=== PATIENT | female | born 1930 | race Caucasian/White ===

== ENCOUNTER 2017-05-22 08:14 | Emergency (ER) | payer MEDICARE, BC ==
[2015-04-22 16:03] VITALS: BMI 18.9
[~2017-05-22 08:14] MED LIST: BACLOFEN10 MG PO; BAYER CHEWABLE81 MG PO; CALTRATE 600 M600 M1 PO; DIOVAN HCT 160/1 TA1 PO; PLAVIX75 MG PO; PRILOSEC20 MG PO; ULTRAM50 MG PO; ZOCOR40 MG PO
[2017-05-22 09:11] LABS: BASOPHILS 0.1 % (0-2); EOSINOPHILS 0.3 % (0-7); HEMATOCRIT 43.8 % (36.0-48.0); HEMOGLOBIN 14.7 g/dL (12-16); IMMATURE GRANULOCYTES 0.5 % (0-5); LYMPHOCYTES 17.2 % (15-50); MCH 31.9 pg (26.0-34.0); MCHC 33.6 g/dL (31.0-37.0); MEAN PLATELET VOLUME 9.2 fL (7.4-10.4); MONOCYTES 10.6 % (2-11); NEUTROPHILS 71.3 % (40-80); PLATELET COUNT 248 10x3/uL (130-400); RBC 4.61 10x6/uL (4.00-5.40); RDW 14.5 % (11.5-14.5); WBC 7.9 10x3/uL (4.8-10.8)
[2017-05-22 09:17] LABS: APPEARANCE HAZY (CLEAR); BILIRUBIN NEGATIVE (NEGATIVE); COLOR YELLOW (YELLOW); GLUCOSE NEGATIVE (NEGATIVE); KETONE NEGATIVE (NEGATIVE); NITRITE NEGATIVE (NEGATIVE); PROTEIN NEGATIVE (NEGATIVE); SPECIFIC GRAVITY 1.005 (1.005-1.020); UROBILINOGEN NORMAL (NORMAL)
[2017-05-22 09:25] LABS: ALBUMIN 3.6 g/dL (3.4-5.0); ANION GAP 13.3 mmol/L (8-16); BILIRUBIN - TOTAL 0.69 mg/dL (0.2-1.3); CARBON DIOXIDE 31.3 mmol/L (21.0-32.0); POTASSIUM - SERUM 3.6 mmol/L (3.5-5.1)
== END 2017-05-22 11:05 | disposition home or self-care (01) ==
LOC: D.ER 08:14
PROVIDERS: Emergency Medicine
DX: R50.9 Fever, unspecified (principal); J06.9 Acute upper respiratory infection, unspecified

== ENCOUNTER → 2018-07-26 10:03 | Outpatient (CLI) | payer MEDICARE, BC ==
[2015-04-22 16:03] VITALS: BMI 18.9
--- NOTE | ~2018-07-26 | EC ---
PATIENT:CHRISTOPHER KEYES DATE OF SERVICE: 07/26/18 SEX: F MEDICAL RECORD: [id number] DATE OF : [birth year] LOCATION:[facility] AGE OF PATIENT: 87 ADMISSION DATE: 07/26/18 REFERRING PHYSICIAN: INTERPRETING PHYSICIAN: RANDI ELIZABETH MD ECHOCARDIOGRAM REPORT ECHO CHARGES 4 ECHO COMPLETE Date: 07/26/18 CLINICAL DIAGNOSIS: HEART MURMUR HX OF CAD/STENTS ECHOCARDIOGRAPHIC MEASUREMENTS (adult normal given) AC root (d.<3.7cm) 3.1 cm LV Septum d (<1.2 cm> 1.2 cm Valve Excursion 0.90 cm LV Septum (systole) 1.4 cm Left Atria (s.<4.0cm> 4.0 cm LVPW d(<1.2cm) 1.4 cm RV (d.<2.3cm) 3.3 cm LVPW (sytole) 1.6 cm LV diastole(<5.6CM) 4.3 cm MV E-F(>70mm/sec) cm LV systole 3.0 cm LVOT Diameter 1.5 cm MV exc.(>10mm) 1.1 cm Est.ejection fraction (50-75%) % DOPPLER: LVIT cm/sec A 145 cm/sec E 109 cm/sec LA cm/sec RVSP 47 mmHg LVOT 105 cm/sec AOP1/2T m/s Asc. Ao 215 cm/sec RVOT 65 cm/sec RA cm/sec PA 148 cm/sec AV Gradient Peak 18.57mmHg AV Mean 11.81mmHg AV Area 0.80 cm MV Gradient Peak 10.45mmHg MV Mean 3.78 mmHg MV Area cm COMMENTS: Bill Adjuster: Susannah MARQUES Grounds Restoration Specialist: 1 Dr. Elizabeth TAPE# PACS Pericardial Effusion N DATE OF SERVICE: 07/26/2018 FINDINGS: 1. Left ventricular chamber size is within normal limits. Left ventricular systolic function is normal. Overall ejection fraction is estimated at 60%. 2. Left atrium is at upper limits of normal at 4.0 cm. Right atrium and right ventricular chamber sizes are mildly dilated. 3. Valvular structures: Aortic valve demonstrates bhmi-dm-webaseuv calcific aortic stenosis. Valve area calculates to 0.8 cm-squared with gradient of 19 mm across the valve. The remaining valvular structures have normal structure and ECHOCARDIOGRAM REPORT [id number] CHRISTOPHER KEYES. 4. Doppler interrogation elsewise reveals znlz-kf-brwupbmy mitral regurgitation and nkhh-dz-[id number] tricuspid regurgitation. No other valvular insufficiency or stenosis. 5. No evidence of pericardial effusion or left ventricular thrombus. TRANSINT:[id number] Voice Confirmation ID: [id number] DOCUMENT ID: [id number] RANDI ELIZABETH MD CC: [id number] DICTATION DATE: 07/26/181731 CERTIFIED PEDORTHOTIST: 07/26/182005 [facility] [address] [id number]
== END | disposition home or self-care (01) ==
LOC: D.HCCARDIO 10:03
PROVIDERS: ATTEND Internal Medicine Interventional Cardiology
DX: R01.1 Cardiac murmur, unspecified (principal)

== ENCOUNTER → 2018-08-01 09:48 | Outpatient (CLI) | payer MEDICARE, BC ==
[2015-04-22 16:03] VITALS: BMI 18.9
--- NOTE | 2018-08-02 17:17 | ST ---
PATIENT:CHRISTOPHER KEYES MEDICAL RECORD: [id number] SEX: F LOCATION:[facility] ORDER #: ADMISSION DATE: 08/01/18 AGE OF PATIENT: 87 REFERRING PHYSICIAN: INTERPRETING PHYSICIAN: RANDI DOWNEY MD DATE OF SERVICE: 08/01/2018 PROCEDURE: Nuclear stress test. INDICATION: Angina and coronary artery disease. She was exercised on standard Lexiscan protocol with 31 mCi of sestamibi injected at peak stress, 10 mCi used previously for rest images. FINDINGS: Gated SPECT reveals preserved ejection fraction at 62% with good wall motion and thickening and brightening throughout all segments. SPECT imaging Cardiolite was used as myocardial fusion agent. There is homogeneous uptake throughout all segments at rest and stress with no evidence of inducible ischemia or previous infarction. OVERALL IMPRESSION: 1. This is a normal nuclear stress test with no evidence of inducible ischemia or previous infarction. 2. Gated SPECT reveals a preserved ejection fraction at 62%. In this patient with ongoing symptomatology, the current scan does not suggest the presence of hemodynamically significant coronary artery disease. Evaluate noncardiac etiology of chest pain. TRANSINT:[id number] Voice Confirmation ID: [id number] DOCUMENT ID: [id number] RANDI DOWNEY MD at 1717 CC: [id number] DICTATION DATE: 08/02/18 1015 CIRCUIT JUDGE: 08/02/18 1037 [facility] CLI 08/01/18 [id number] [place] [address]
== END | disposition home or self-care (01) ==
LOC: D.HCCARDIO 09:48
PROVIDERS: ATTEND Internal Medicine Interventional Cardiology
DX: I25.10 Atherosclerotic heart disease of native coronary artery without angina pectoris (principal)

== ENCOUNTER → 2019-02-24 07:58 | Outpatient (CLI) | payer MEDICARE, BC ==
[2015-04-22 16:03] VITALS: BMI 18.9
--- NOTE | 2019-02-27 11:13 | EC ---
PATIENT:CHRISTOPHER KEYES DATE OF SERVICE: 02/24/19 SEX: F MEDICAL RECORD: [id number] DATE OF : [birth year] LOCATION:[facility] AGE OF PATIENT: 88 ADMISSION DATE: 02/24/19 REFERRING PHYSICIAN: INTERPRETING PHYSICIAN: RANDI ELIZABETH MD ECHOCARDIOGRAM REPORT ECHO CHARGES 4 ECHO COMPLETE Date: 02/24/19 CLINICAL DIAGNOSIS: CAD/AORITC STENOSIS/MITRAL REGURG ECHOCARDIOGRAPHIC MEASUREMENTS (adult normal given) AC root (d.<3.7cm) 3.4 cm LV Septum d (<1.2 cm> 1.4 cm Valve Excursion 1.5 cm LV Septum (systole) 1.6 cm Left Atria (s.<4.0cm> 4.6 cm LVPW d(<1.2cm) 1.5 cm RV (d.<2.3cm) 3.0 cm LVPW (sytole) 1.6 cm LV diastole(<5.6CM) 3.4 cm MV E-F(>70mm/sec) cm LV systole 2.2 cm LVOT Diameter 1.5 cm MV exc.(>10mm) 1.1 cm Est.ejection fraction (50-75%) % DOPPLER: LVIT cm/sec A 166.0cm/sec E 112.0 cm/sec LA cm/sec RVSP 47 mmHg LVOT 92 cm/sec AOP1/2T m/s Asc. Ao 234 cm/sec RVOT 73 cm/sec RA cm/sec PA 97 cm/sec AV Gradient Peak 21.81mmHg AV Mean 12.17mmHg AV Area 1.3 cm MV Gradient Peak 13.25mmHg MV Mean 5.10 mmHg MV Area cm COMMENTS: Digital Content Marketing Manager: 2 KYARA MARQUES Intel Recruiter: 1 Dr. Elizabeth TAPE# PACS Pericardial Effusion N DATE OF SERVICE: ECHOCARDIOGRAM FINDINGS: 1. Left ventricular chamber size is within normal limits. Left ventricular systolic function is normal. Overall ejection fraction estimated at 60%. 2. Left atrium, is dilated at 4.6 cm. Right atrium and right ventricular chamber sizes are within normal limits. 3. Valvular structures: Aortic valve demonstrates mild calcific aortic ECHOCARDIOGRAM REPORT [id number] CHRISTOPHER KEYES stenosis, valve area calculates 1.3 cm-squared with gradient 21 mm across the valve. The remaining valvular structures have normal structure and motion. 4. Doppler interrogation elsewise reveals wfug-an-mawotekc mitral regurgitation, mild to moderate tricuspid regurgitation, no other valvular insufficiency or stenosis. Pulmonary systolic pressure is estimated 47 mmHg. 5. No evidence of pericardial effusion or left ventricular thrombus. TRANSINT:[id number] Voice Confirmation ID: [id number] DOCUMENT ID: [id number] RANDI ELIZABETH MD at 1113 CC: [id number] DICTATION DATE: 02/24/19 1244 CANOE INSPECTOR FINAL: 02/24/19 1701 [facility] CLI 02/24/19 [id number] [place] [address]
== END | disposition home or self-care (01) ==
LOC: D.HCCECHO 07:58
PROVIDERS: ATTEND Internal Medicine Interventional Cardiology
DX: I25.10 Atherosclerotic heart disease of native coronary artery without angina pectoris (principal)